=== PATIENT | male | born 1990 | race Caucasian/White ===

== ENCOUNTER 2020-05-01 07:01 | Emergency (ER) | payer MEDICARE, OTHER ==
[~2020-05-01 07:01] MED LIST: COLACE 100MG C100 MG PO; PANTOPRAZOLE SO40 MG PO; PEPCID20 MG PO; PREPARATION H1 EAC1 PR; VISTARIL25 MG PO
== END 2020-05-01 07:30 | disposition home or self-care (01) ==
LOC: ER1 07:01
DX: R07.0 Pain in throat (principal)
CPT/HCPCS: 99282

== ENCOUNTER → 2020-05-14 | Outpatient (CLI) | payer MEDICARE, OTHER | LOC: KOH-I 12:52 | DX: R13.10 Dysphagia, unspecified (principal) | CPT/HCPCS: 76536 ==

== ENCOUNTER 2020-08-30 17:11 | Emergency (ER) | payer MEDICARE, OTHER | END 2020-08-30 18:40 | disposition left against medical advice (07) | LOC: ER1 17:11 | DX: Z53.21 Procedure and treatment not carried out due to patient leaving prior to being seen by health care provider (principal) | CPT/HCPCS: 93005 ==

== ENCOUNTER → 2020-11-08 | Outpatient (CLI) | payer MEDICARE | LOC: KOH-I 10-05 08:00 → EXRD 08:13 | DX: R11.2 Nausea with vomiting, unspecified (principal) | CPT/HCPCS: 76705 ==

== ENCOUNTER 2021-05-08 07:59 | Emergency (ER) | payer MEDICARE, OTHER ==
[2021-05-08 08:33] LABS: HEMOGLOBIN 15.1 gm/dl (14.0-17.5); RED BLOOD COUNT 5.3 M/UL (4.20-5.50); WHITE BLOOD COUNT 11.8 K/UL (4.5-11.0)
[2021-05-08 08:57] LABS: BUN/CREATININE RATIO 8 (0-10)
[2021-05-08] MEDS ORDERED: ZOFRAN 4 MG TAB4 MG PO (10:19)
[2021-05-08] MEDS ORDERED: BENTYL 20MG TAB20 MG PO (10:19)
== END 2021-05-08 10:32 | disposition home or self-care (01) ==
LOC: ER1 07:59
PROVIDERS: Physician Assistant
DX: R10.9 Unspecified abdominal pain (principal); R10.816 Epigastric abdominal tenderness; R10.12 Left upper quadrant pain; I10 Essential (primary) hypertension; R11.0 Nausea
CPT/HCPCS: 80053; 81001; 82150; 83690; 85025; 96374; 99284; J2405; Q9967

== ENCOUNTER 2021-08-27 17:22 | Emergency (ER) | payer MEDICARE, OTHER ==
[~2021-08-27 17:22] MED LIST changes: +BENTYL 20MG TAB20 MG PO; +ZOFRAN 4 MG TAB4 MG PO
[2021-08-27] MEDS ORDERED: CEPHALEXIN500 MG PO (18:12)
== END 2021-08-27 18:30 | disposition home or self-care (01) ==
LOC: ER1 17:22
DX: S91.332A Puncture wound without foreign body, left foot, initial encounter (principal); W45.0XXA Nail entering through skin, initial encounter; Y92.009 Unspecified place in unspecified non-institutional (private) residence as the place of occurrence of the external cause
CPT/HCPCS: 73630; 90471; 90715; 99283

== ENCOUNTER 2021-09-04 17:04 | Emergency (ER) | payer MEDICARE, OTHER ==
[~2021-09-04 17:04] MED LIST changes: +CEPHALEXIN500 MG PO
== END 2021-09-04 17:53 | disposition left against medical advice (07) ==
LOC: ER1 17:04
DX: Z53.21 Procedure and treatment not carried out due to patient leaving prior to being seen by health care provider (principal)